=== PATIENT | female | born 1950 | race Two or more races ===

== ENCOUNTER 2016-09-27 14:47 | Inpatient (IN) | payer BC, MEDICARE ==
[2016-09-27 15:22] VITALS: BMI 17.8
[2016-09-27] MEDS ORDERED: Sodium Chloride 0.9% 1,000 ML IV STA (15:39)
[2016-09-27] MEDS ORDERED: Iohexol 240 (50 ml) ONE (15:58)
[2016-09-27 16:15] LABS: ADD MANUAL DIFF? NO
[2016-09-27 16:24] LABS: BASO # 0.05 K/mm3 (0.0-2.0); BASO % 0.7 % (0.0-3.0); EOS # 0.1 (0.0-0.7); EOS % 1.6 % (1.5-5.0); GRAN # 5.51 (1.4-6.5); GRAN % 74.5 % (50.0-68.0); LYMPH # 1.3 (1.2-3.4); LYMPH % 17.3 % (22.0-35.0); MEAN CELL VOLUME 65.7 fL (80.0-105.0); MEAN CORPUSCULAR HEMOGLOBIN 20.7 pg (25.0-35.0); MEAN CORPUSCULAR HGB CONC 31.5 g/dl (31.0-37.0); MONO # 0.4 (0.1-0.6); MONO % 5.9 % (1.0-6.0); PLATELET COUNT 487 10^3/uL (120.0-450.0); RED CELL DISTRIBUTION WIDTH 18.1 % (11.5-14.5); WHITE BLOOD COUNT 7.4 10^3/ul (4.5-11.0)
[2016-09-27 16:31] LABS: ALB/GLOB RATIO 1.1 (1.1-1.8); ALKALINE PHOSPHATASE 519 U/L (38-133); ALT/SGPT 124 U/L (7-56); AMYLASE 112 U/L (35-125); AST/SGOT 86 U/L (15-39); BILIRUBIN,TOTAL 7.4 mg/dL (0.2-1.3); BLOOD UREA NITROGEN 11 mg/dL (7-21); CALCIUM 8.9 mg/dL (8.4-10.5); CARBON DIOXIDE 24 mmol/L (21-33); CHLORIDE 98 mmol/L (98-107); GFR AFRICAN-AMERICAN > 60; GLUCOSE,RANDOM 98 mg/dL (70-110); INR 0.99 (0.93-1.08); LIPASE 337 U/L (23-300); PARTIAL THROMBOPLASTIN TIME 27.3 Seconds (23.7-30.8); POTASSIUM 3.5 mmol/L (3.6-5.0); SODIUM 134 mmol/L (132-148); TOTAL PROTEIN 7.1 g/dL (5.8-8.3)
[2016-09-27 16:38] LABS: HEMATOCRIT 23.8 % (36.0-48.0)
[2016-09-27 16:44] LABS: PH,URINE 6.5 (4.7-8.0); URINE BILIRUBIN SMALL (NEGATIVE); URINE BLOOD LARGE (NEGATIVE); URINE GLUCOSE (UA) NEGATIVE (NEGATIVE); URINE KETONE NEGATIVE (NEGATIVE); URINE LEUKOCYTE ESTERASE TRACE Leu/uL (NEGATIVE); URINE PROTEIN 30 mg/dL (<30 mg/dL); URINE UROBILINOGEN 0.2 E.U./dL (<1 E.U./dL)
[2016-09-27 16:48] LABS: URINE APPEARANCE TURBID (CLEAR); URINE COLOR YELLOW (YELLOW)
--- NOTE | 2016-09-27 16:48 | ED PDOC ---
Arrival/HPI - General Chief Complaint: Abnormal Skin Integrity Time Seen by Provider: 09/27/16 15:21 Historian: Patient - History of Present Illness Narrative History of Present Illness (Text): 09/27/16 16:45 66 y.o. female whose PMHx includes hypertension who comes to the ED with complaint of a nonspecific back pain beginning about a week ago and then developed abdominal pain over the past few days. Today her family noticed that she was jaundiced. She denies any n/v/d or fever or cp or sob. She says her stool was pale-colored about a week ago, but its color is back to normal. She says her urine is dark. No blood in stool has been noted. She has noticed easy bruising on her arms. Patient gives no history of hepatitis. She does have a history of smoking and reports significant etoh use in the past. Past Medical History - Infectious Disease Hx of Infectious Diseases: None - Tetanus Immunization Tetanus Immunization: Unknown - Cardiac Hx Hypertension: Yes - Pulmonary Hx Respiratory Disorders: No - Neurological Hx Neurological Disorder: No - HEENT Hx Cataracts: Yes Hx Glaucoma: Yes (right acute angle) - Renal Hx Renal Disorder: No - Endocrine/Metabolic Hx Endocrine Disorders: No - Hematological/Oncological Hx Blood Disorders: No - Integumentary Hx Dermatological Disorder: No - Musculoskeletal/Rheumatological Hx Musculoskeletal Disorders: No - Gastrointestinal Hx Gastrointestinal Disorders: No - Genitourinary/Gynecological Hx Genitourinary Disorders: Yes Other/Comment: benign ovarian cyst. - Psychiatric Hx Depression: No Hx Emotional Abuse: No Hx Physical Abuse: No Hx Substance Use: No - Surgical History Hx Cholecystectomy: Yes Other/Comment: rt salivary benign gland. - Anesthesia Hx Anesthesia: Yes Hx Anesthesia Reactions: No - Suicidal Assessment Feels Threatened In Home Enviroment: No Family/Social History Family/Social History: No Known Family HX Smoking Status: Current Some Days Smoker Hx Alcohol Use: Yes Frequency of alcohol use: Socially Hx Substance Use: No Hx Substance Use Treatment: Yes Allergies/Home Meds Allergies/Adverse Reactions: Allergies No Known Allergies Allergy (Verified 09/27/16 15:26) Home Medications: Home Meds Medication Instructions Recorded Confirmed Lisinopril [Zestril] 10 mg PO DAILY 09/27/16 09/27/16 Review of Systems - Review of Systems Constitutional: Other (chills). absent: Fatigue Eyes: Normal ENT: Normal Respiratory: Normal Cardiovascular: Normal Gastrointestinal: Abdominal Pain. absent: Diarrhea, Nausea, Vomiting, Hematochezia Genitourinary Female: Other (darker urine). absent: Dysuria Skin: absent: Rash Neurological: absent: Headache, Dizziness Endocrine: Normal Hemo/Lymphatic: Easy Bruising. absent: Easy Bleeding Physical Exam Vital Signs Temp Pulse Resp BP Pulse Ox 09/27/16 17:00 89 18 179/102 H 96 09/27/16 15:22 18 97 09/27/16 15:13 97.6 F 95 H 16 186/103 H 96 Temperature: Afebrile Blood Pressure: Hypertensive Pulse: Regular Respiratory Rate: Normal Appearance: Positive for: Other (Patient is visibly jaundiced; no apparent distress) Pain Distress: None Mental Status: Positive for: Alert and Oriented X 3 - Systems Exam Head: Present: Atraumatic, Normocephalic Pupils: Present: PERRL Conjunctiva: Present: Icteric Mouth: Present: Moist Mucous Membranes Pharnyx: Present: Normal. No: ERYTHEMA Neck: Present: Normal Range of Motion Respiratory/Chest: Present: Good Air Exchange, Decreased Breath Sounds. No: Respiratory Distress, Accessory Muscle Use Cardiovascular: Present: Regular Rate and Rhythm, Normal S1, S2. No: Murmurs Abdomen: Present: Tenderness (mild tenderness to the right of the umbilicus), Normal Bowel Sounds. No: Distention, Peritoneal Signs Back: Present: Normal Inspection Upper Extremity: Present: Other (several areas of superficial bruising). No: Cyanosis, Edema Lower Extremity: Present: Normal Inspection. No: Edema Neurological: Present: GCS=15, CN II-XII Intact, Speech Normal Skin: Present: Warm, Dry, Other (superficial bruising on upper extremities b/L) . No: Rashes Psychiatric: Present: Alert, Oriented x 3, Normal Insight, Normal Concentration Medical Decision Making ED Course and Treatment: 09/27/16 16:50 Patient with new onset jaundice. Will check labs, CT c/a/p. Differential: Pancreatic CA vs. Hepatocellular CA vs. Other Metastatic Disease vs. Acute Hepatitis vs. less likely cholangitis 09/27/16 19:19 Reviewed radiology, CT Chest: Dictated and Authenticated by: Margot Velasquez MD Lungs: Extensive centrilobular emphysematous changes. No focal consolidation. Pleural space: Unremarkable. No pneumothorax. No significant effusion. Heart: Ascending aorta measures up to 3.8 cm. Atherosclerotic calcification of the aorta. Coronary arterial calcifications. Moderate cardiomegaly. Mild cardiomegaly. No significant pericardial effusion. Bones/joints: Osteopenia. Spondylosis. No acute fracture. No dislocation. Soft tissues: Unremarkable. Vasculature: See above. Lymph nodes: Mediastinal lymph nodes are noted, for example 8 mm in short axis lymph node in the precarinal region. AP window lymph nodes are noted measuring up to 9 mm in short axis. Upper abdomen: Refer to the CT abdomen report for additional findings. IMPRESSION: Extensive centrilobular emphysematous changes. No focal consolidation. Refer to the CT abdomen report for additional findings CT Abdomen and Pelvis shows: Dictated and Authenticated by: Margot Velasquez MDLower thorax: <No significant pleural effusions.> ABDOMEN: Liver: Gallbladder and bile ducts: Moderate to severe intrahepatic biliary duct dilation. Common bile duct is dilated measuring up to 1.5 cm. There is soft tissue mass in the region of the gallbladder fossa and hepatic flexure of the colon with adjacent fat infiltration. Apparent thickening of the gallbladder wall. Pancreas: Unremarkable. No ductal dilation. Spleen: Unremarkable. No splenomegaly. Adrenals: Bilateral adrenal thickening. Kidneys and ureters: Moderate left hydronephrosis. Mild right hydronephrosis. Stomach and bowel: Oral contrast reaches the terminal ileum. Appendix: No findings to suggest acute appendicitis. PELVIS: Bladder: Partially contracted. Reproductive: Unremarkable as visualized. Subperitoneal space: Presacral edema. ABDOMEN and PELVIS: Intraperitoneal space: No free air. No stress drainable fluid collection. Bones/joints: Spondylosis. Soft tissues: Unremarkable. Vasculature: Atherosclerotic calcifications of the aorta. No abdominal aortic aneurysm. Lymph nodes: No enlarged lymph nodes. IMPRESSION: 1. Moderate to severe intrahepatic biliary duct dilation. Common bile duct is dilated measuring up to 1.5 cm. There is soft tissue mass in the region of the gallbladder fossa/common bile duct and hepatic flexure of the colon with adjacent fat infiltration. Apparent thickening of the gallbladder wall. These findings are concerning for either cholangiocarcinoma versus gallbladder malignancy or colonic malignancy. Clinical correlation is recommended. 2. Moderate left hydronephrosis. Mild right hydronephrosis 09/27/16 20:03 Patient's labs are noted with findings on CT showing biliary ductal dilatation associated with a concerning mass, highly suspicious for malignancy. Discussed case with patient's daughter, Kortney ([phone]), who accompanied her mother here in the ER and is a pathologist. Discussed with Dr. White, covering Dr. Jackson, who is covering Dr. La. Decision made to admit [place] [facility] [place] and if needed to be transferred for higher specialty care pending GI eval. Will transfuse patient 2 units PRBC. Patient signed blood transfusion consent. - Lab Interpretations Lab Results: 09/27/16 16:00 09/27/16 16:00 Lab Results 09/27/16 16:35: Urine Color Yellow, Urine Appearance Turbid, Urine pH 6.5, Ur Specific [place] 1.010, Urine Protein 30 H, Urine Glucose (UA) Negative, Urine Ketones Negative, Urine Blood Large H, Urine Nitrate Negative, Urine Bilirubin Small H, Urine Urobilinogen 0.2, Ur Leukocyte Esterase Trace H, Urine RBC Tntc, Urine WBC 1 - 3, Urine Bacteria Few 09/27/16 16:00: WBC 7.4, RBC 3.62, Hgb 7.5 L D, Hct 23.8 L, MCV 65.7 L, MCH 20.7 L, MCHC 31.5, RDW 18.1 H, Plt Count 487 H, MPV 9.0, Gran % 74.5 H, Lymph % (Auto) 17.3 L, [place] % (Auto) 5.9, Eos % (Auto) 1.6, Baso % (Auto) 0.7, Gran # 5.51, Lymph # 1.3, [place] # 0.4, Eos # 0.1, Baso # 0.05, PT 10.7, INR 0.99, APTT 27.3, Sodium 134, Potassium 3.5 L, Chloride 98, Carbon Dioxide 24, Anion Gap 16 , BUN 11, Creatinine 0.7, Est GFR ( Amer) > 60, Est GFR (Non-Af Amer) > 60, Random Glucose 98, Calcium 8.9, Total Bilirubin 7.4 H, Direct Bilirubin 6.1 H, GGT 309 H, AST 86 H, ALT 124 H, Alkaline Phosphatase 519 H, Total Protein 7.1 , Albumin 3.7, Globulin 3.5, Albumin/Globulin Ratio 1.1, Amylase 112, Lipase 337 H I have reviewed the lab results: Yes - RAD Interpretation Radiology Orders: 09/27/16 15:39 CHEST TWO VIEWS (PA/LAT) [RAD] Stat 09/27/16 15:40 CHEST,ABD,PEL W/IV&PO CONTRAST [CT] Stat - Medication Orders Current Medication Orders: Sodium Chloride (Sodium Chloride 0.9%) 1,000 mls @ 100 mls/hr IV .Q10H STA Stop: 09/28/16 01:38 Last Admin: 09/27/16 16:00 Dose: 100 MLS/HR eMAR Start Stop Document 09/27/16 16:00 SANDOR (Rec: 09/27/16 16:15 SANDOR [id number]) Intravenous Solution Start Date 09/27/16 Start Time 16:00 Discontinued Medications Iohexol (Omnipaque 240 (50 Ml)) Confirm Administered Dose 50 ml .ROUTE .STK-MED ONE Stop: 09/27/16 15:59 Iohexol (Omnipaque 350 100 Ml) Confirm Administered Dose 350 mg .ROUTE .STK-MED ONE Stop: 09/27/16 17:56 Disposition/Present on Arrival - Present on Arrival Any Indicators Present on Arrival: No History of DVT/PE: No History of Uncontrolled Diabetes: No Urinary Catheter: No History of Decub. Ulcer: No History Surgical Site Infection Following: None - Disposition Have Diagnosis and Disposition been Completed?: Yes Diagnosis: Jaundice, Cholangiectasis Disposition: HOSPITALIZED Disposition Time: 19:50 Patient Plan: Admission Condition: FAIR
[2016-09-27 16:49] LABS: URINE BACTERIA FEW (NEG); URINE RBC TNTC /hpf (0-2)
[2016-09-27 17:14] LABS: BILIRUBIN,DIRECT 6.1 mg/dL (0.0-0.4)
[2016-09-27] MEDS ORDERED: Iohexol 350 MG/100 ML VIAL ONE (17:55)
[2016-09-28 08:06] LABS: ADD MANUAL DIFF? NO
[2016-09-28 08:15] LABS: BASO # 0.06 K/mm3 (0.0-2.0); EOS # 0.2 (0.0-0.7); EOS % 2.9 % (1.5-5.0); GRAN # 4.25 (1.4-6.5); GRAN % 68.2 % (50.0-68.0); HEMATOCRIT 26.1 % (36.0-48.0); LYMPH # 1.3 (1.2-3.4); LYMPH % 20.2 % (22.0-35.0); MEAN CELL VOLUME 66.9 fL (80.0-105.0); MEAN CORPUSCULAR HEMOGLOBIN 21.3 pg (25.0-35.0); MEAN CORPUSCULAR HGB CONC 31.8 g/dl (31.0-37.0); MEAN PLATELET VOLUME 9.4 fl (7.0-11.0); MONO # 0.5 (0.1-0.6); MONO % 7.7 % (1.0-6.0); PLATELET COUNT 506 10^3/uL (120.0-450.0); RED CELL DISTRIBUTION WIDTH 19.2 % (11.5-14.5); WHITE BLOOD COUNT 6.2 10^3/ul (4.5-11.0)
[2016-09-28 08:23] LABS: BLOOD UREA NITROGEN 6 mg/dL (7-21); CALCIUM 8.6 mg/dL (8.4-10.5); CARBON DIOXIDE 26 mmol/L (21-33); CHLORIDE 100 mmol/L (95-110); GFR AFRICAN-AMERICAN > 60; GLUCOSE,RANDOM 96 mg/dL (70-110); POTASSIUM 3.5 mmol/L (3.6-5.0); SODIUM 136 mmol/L (132-148)
--- NOTE | 2016-09-28 08:51 | RAD ---
HISTORY: new onset jaundice COMPARISON: No prior. TECHNIQUE: Chest PA and lateral FINDINGS: LUNGS: No active pulmonary disease. PLEURA: No significant pleural effusion identified. No pneumothorax apparent. CARDIOVASCULAR: Normal. OSSEOUS STRUCTURES: No significant abnormalities. VISUALIZED UPPER ABDOMEN: Normal. OTHER FINDINGS: None. IMPRESSION: No active disease.
--- NOTE | 2016-09-28 09:54 | CT ---
PROCEDURE: CT Chest, Abdomen and Pelvis with intravenous contrast HISTORY: new onset jaundice; r/o malignancy COMPARISON: None. TECHNIQUE: IV dose administered: 100 cc of Omnipaque High density fluid in the pelvis possibly representing small hemoperitoneum post ovarian cyst rupture. Edema tracks superiorly along the left pericolic gutter. No gross bowel related abnormalities observed to suggest colitis. Helical scanning was obtained from the chest through the pelvis followed by sagittal coronal reconstructions. Radiation dose: Total exam DLP = 326 mGy-cm. FINDINGS: CT CHEST WITH CONTRAST: LUNGS: Extensive centrilobular bullous emphysema. 4 millimeter nodule in the left apical segment for which follow-up in 3-6 months is recommended to confirm stability. MEDIASTINUM: Unremarkable. Normal caliber aorta and pulmonary arterial trunk. No aortic dissection. Normal size heart. LYMPH NODES: Unremarkable. PLEURA: Unremarkable. No pneumothorax. No pleural fluid. BONES: Unremarkable. OTHER FINDINGS: None. CT ABDOMEN AND PELVIS: LIVER: Unremarkable. No gross lesion or ductal dilatation. GALLBLADDER AND BILE DUCTS: Severe intrahepatic biliary dilatation with extensive thickening and abnormal enhancement of the gallbladder wall with a roughly 4.9 x 3.8 centimeter soft tissue mass in the gallbladder fossa tracking into the subhepatic space highly suggestive of gallbladder carcinoma. Acute cholecystitis with severe phlegmon is also considered. PANCREAS: Unremarkable. No gross lesion or ductal dilatation. SPLEEN: Unremarkable. ADRENALS: Unremarkable. No mass. KIDNEYS AND URETERS: Unremarkable. No hydronephrosis. No solid mass. VASCULATURE: Unremarkable. No aortic aneurysm. BOWEL: Unremarkable. No obstruction. No gross mural thickening. APPENDIX: Normal appendix. PERITONEUM: Unremarkable. No free fluid. No free air. LYMPH NODES: Unremarkable. No enlarged lymph nodes. BLADDER: Unremarkable. REPRODUCTIVE: Unremarkable. BONES: No acute fracture. OTHER FINDINGS: None. IMPRESSION: Severe intrahepatic biliary dilatation with extensive thickening and abnormal enhancement of the gallbladder wall with a roughly 4.9 x 3.8 centimeter soft tissue mass in the gallbladder fossa tracking into the subhepatic space highly suggestive of gallbladder carcinoma. Acute cholecystitis with severe phlegmon is also considered. Extensive centrilobular bullous emphysema. 4 millimeter nodule in the left apical segment for which follow-up in 3-6 months is recommended to confirm stability.
[2016-09-28 12:45] LABS: CA 19-9 4620 U/mL (0-37)
--- NOTE | 2016-09-28 22:24 | CON ---
DATE: 09/28/2016 REASON FOR CONSULTATION: Abdominal CAT scan, jaundice. HISTORY OF PRESENT ILLNESS: This 66-year-old patient with a past medical history of hypertension presented to the Emergency Room with complaints of worsening of the abdominal pain for the past 1 week and also worsening of back pain. She also noticed the stool was more pale in color. Denies any vomiting any blood. No fever, no diarrhea. No similar history of pain in the past. PAST MEDICAL HISTORY: Her other past medical history is significant for total abdominal hysterectomy with salpingo-oophorectomy for ovarian cyst adenoma many years ago, history of left mandibular salivary gland surgery, cataract and surgery for acute angle glaucoma. ALLERGIES: No known drug allergy. SOCIAL HISTORY: Positive for smoking, alcohol socially. REVIEW OF SYSTEMS: Positive as above. Other systems reviewed. All other systems reviewed and negative. PHYSICAL EXAMINATION: GENERAL: The patient is lying on the bed, not in acute distress. VITAL SIGNS: Pulse 76 per minute, blood pressure 145/83, temperature is 98.3, respirations 16. HEENT: Jaundiced. NECK: Supple. HEART: S1, S2 heard. LUNGS: Bilateral air entry present. ABDOMEN: Soft. There was no tenderness. There was no mass palpable. There was tenderness present in the right side of the abdomen. On deep palpation, had a fullness present. Liver edge palpable. EXTREMITIES: No edema. No cyanosis. NEUROLOGIC: Alert, oriented. Moves all the extremities. LABORATORY DATA: Hemoglobin yesterday was 7.5, she was transfused a unit, today is 8.5. Platelets 506. WBC 6.2. Chemistry is total bilirubin 7.4. GGTP 6309. AST is 86, ALT 124, alkaline phosphatase 519. The patient's lipase is 337, CA 19-9 is significantly elevated to 4620. CA-125 is 16.9. CEA is only 2.7. The patient did have a CT of the abdomen and pelvis with p.o. and IV contrast given and it was reported as [id number] intrahepatic bile duct dilation and common bile duct was measuring up to 1.5 cm. There was a soft tissue mass in the region of the gallbladder fossa. Common bile duct and the hepatic flexure of the colon with adjacent fat infiltration. The findings are more in concern of cholangiocarcinoma versus gallbladder malignancy versus colonic malignancy. The patient also found to have moderate left hydronephrosis and right hydronephrosis. _. IMPRESSION: This 66-year-old patient admitted with worsening of the abdominal pain and back pain. Found to be anemic with a hemoglobin of 7.5. She is status post unit transfusion given. No history of melena or bright red blood per rectum. The CT shows significant finding of soft tissue mass in the region of the gallbladder fossa, CBD and the hepatic flexure area. The patient did have significant elevated CA 19-9, normal CEA. The findings are more suggestive of gallbladder carcinoma versus cholangiocarcinoma. The patient never had an EGD or a colonoscopy done. PLAN: 1. Discussed with the patient's daughter who is a physician working as hepatopathologist in [facility]. She would prefer the patient to be referred to tertiary hepatobiliary unit for advanced procedures and surgical evaluation if needed 2. I did explain to her that the reasonable thing is to get a little more information about patient's condition. She would benefit from an MRI of the abdomen with and without contrast with MRCP to further evaluate. She is agreeable for that and it was ordered. 2. We will continue Protonix and close followup of the hemoglobin and hematocrit. 3. The patient's family prefers the patient to be transferred to a tertiary liver unit, which we will be contacting in a.m. Thank you very much for allowing us to participate in the care of the patient. The patient's daughter is Dr. Kortney Pederson. Her cellphone [phone]. She prefers to have complete involvement in the patient's care. Franklin Guerrero MD cc: [id number] TT: 09/28/2016 22:23:18 Confirmation # [id number] Dictation # [id number] [facility]ISON
--- NOTE | 2016-09-29 01:49 | HP ---
HISTORY OF PRESENT ILLNESS: The patient is a 66-year-old female, presented to the ED with complaints of nonspecific back pain, abdominal pain. No nausea and vomiting. She noticed that was jaundiced. She never had fever. She also noted black-colored stools. Urine was dark. She also noted easy bru ising on the arms. There is no history of hepatitis in the past. CAT scan of the chest, abdomen, an d pelvis showed a mass in shailesh hepatis. No other lesions identified in the chest or abdomen. She h as history of cholecystectomy. She has been in good health a month ago. She also noticed decreased appetite and some weight loss. PAST MEDICAL HISTORY: Hypertension, benign ovarian cyst. PAST SURGICAL HISTORY: Cholecystectomy, right salivary gland benign tumor. FAMILY HISTORY: No positive history in mother and father. PERSONAL HISTORY: Current someday smoker. No history of alcohol abuse. SOCIAL HISTORY: Lives at home. ALLERGIES: No known drug allergies. HOME MEDICATIONS: Lisinopril 10 mg daily. REVIEW OF SYSTEMS: As per HPI. Rest of 12-point review of systems reviewed and negative. PHYSICAL EXAMINATION: GENERAL: Comfortable in bed, in no acute distress. VITAL SIGNS: Temperature 98.7, heart rate is 95 per minute, respiratory rate 16 per minute, blood pr essure 186/103, pulse rate is 96 per minute. HEENT: icterus present. Oral mucosa pale. NECK: No lymphadenopathy. Pupils equally reacting to light, bilateral. No lymphadenopathy. CHEST: Air entry present, equal bilateral. No added sound. CARDIOVASCULAR: S1, S2 normal. No murmur, no gallop. ABDOMEN: Soft, nontender, no hepatosplenomegaly. No ascites. No rebound tenderness. NEUROLOGIC: Alert, oriented x 3, no focal sensorimotor deficit. SKIN: No petechia, no rash or jaundice present. Spine normal. PSYCHIATRIC: Mood and affect normal. LABORATORY DATA: White count 7.4, hemoglobin 7.5, hematocrit 23.8, MCV 65, platelet count 487. PT 1 0.7, INR 0.99, ____ 27.3. Sodium 135, potassium 3.5, creatinine 0.7, total bilirubin 7.4, direct lenin irubin 6.1, GGT 309, AST 86, ALT 124, alkaline phosphatase 519, lipase 337. UA: Leukocyte esterase trace. ASSESSMENT: 1. Marked shailesh hepatis. 2. Jaundice. 3. Severe anemia. 4. Abdominal pain. 5. Hypertension. PLAN: She will be admitted to the hospital. We will give IV fluids, 800 mL an hour normal saline. We will give Pepcid 20 mg IV b.i.d. We will continue antihypertensives, lisinopril 10 mg daily. GI consultation with Dr. Guerrero requested. CAT scan of abdomen and pelvis reviewed. Severe anemia, he moglobin 7.5 two units of blood transfusion ordered. We will continue to monitor hemoglobin and baudilio tocrit. She will need further workup for evaluation of malignancy. Very likely, she might have chol angiocarcinoma or metastatic lesion from pancreatic cancer. Tumor markers were ordered CEA, CA 19.9 and CA-125. Results reviewed. CEA normal, CA-125 normal, CA 19.9 elevated at 4000. Consistent with cholangiocarcinoma or pancreatic cancer. She will need biopsy of the shailesh hepatitis mass. Also will need biliary drainage. She has obstructive jaundice. Hepatitis serology is ordered. Both patient and daughter want to be transferred to [facility] for further workup and evaluation and treatm ent. Daughter is pathologist in [facility]. Dr. Guerrero will contact the GI oncology team at [facility]. I had a lengthy discussion with the daughter, answered all her questio ns to her satisfaction. Discussed with Dr. Guerrero at length, she will benefit from MRI of the live r. MRI ordered. I discussed with the staff nurse. Discussed with Dr. Guerrero. Discussed with the daughter, Feliciawesley, discussed with the patient. Candy White MD cc: [id number] TT: 09/29/2016 01:48:09 shelbi
[2016-09-29 07:24] LABS: HEMATOCRIT 26.2 % (36.0-48.0); MEAN CELL VOLUME 67.2 fL (80.0-105.0); MEAN CORPUSCULAR HEMOGLOBIN 21.5 pg (25.0-35.0); MEAN CORPUSCULAR HGB CONC 32.1 g/dl (31.0-37.0); MEAN PLATELET VOLUME 9.1 fl (7.0-11.0); RED CELL DISTRIBUTION WIDTH 19.8 % (11.5-14.5); WHITE BLOOD COUNT 7.3 10^3/ul (4.5-11.0)
[2016-09-29] MEDS ORDERED: Piperacillin/Tazobact 3.375 gm 100 ML IVPB SCH (08:00)
[2016-09-29 08:03] LABS: ALKALINE PHOSPHATASE 510 U/L (38-133); ALT/SGPT 102 U/L (7-56); AST/SGOT 86 U/L (15-39); BILIRUBIN,TOTAL 9.3 mg/dL (0.2-1.3); BLOOD UREA NITROGEN 11 mg/dL (7-21); CALCIUM 8.9 mg/dL (8.4-10.5); CARBON DIOXIDE 30 mmol/L (21-33); CHLORIDE 100 mmol/L (98-107); GFR AFRICAN-AMERICAN > 60; GLUCOSE,RANDOM 93 mg/dL (70-110); POTASSIUM 4.3 mmol/L (3.6-5.0); SODIUM 140 mmol/L (132-148); TOTAL PROTEIN 6.8 g/dL (5.8-8.3)
--- NOTE | 2016-09-29 08:06 | PN ---
DATE: 09/29/2016 SUBJECTIVE: The patient has no complaints of any chest pain, no shortness of breath. PHYSICAL EXAMINATION: VITAL SIGNS: Temperature is 98.3, pulse is 76, blood pressure is 131/69, respirations 16. GENERAL: The patient comfortable, in no acute distress. HEENT: Anicteric sclerae. Moist mucosa. NECK: No JVD or adenopathy. CARDIAC: S1/S2. No murmurs. No rubs. Regular. RESPIRATORY: Clear to auscultation bilaterally. No wheezes, rales, or rhonchi. Good air entry. ABDOMEN: Bowel sounds are positive, soft, nontender, and nondistended. EXTREMITIES: No edema. Has 1+ pulses. LABS: White count is 6.3, hemoglobin 8.3, creatinine 0.8. ASSESSMENT: 1. Jaundice. 2. Hypertension. 3. Abdominal pain. 4. Anemia. 5. A 4.9 x 3.8 cm soft tissue mass in the gallbladder fossa. 6. Acute cholecystitis. 7. A 4 mm nodule in the left lung. PLAN: The patient has significant elevated LFTs as well as an alk phos. The patient's bilirubin is elevated. On CAT scan, the patient has severe intrahepatic biliary dilatation with extensive thicke ailyn and abnormal enhancement of the gallbladder wall. There is a 4.9 x 3.8 cm soft tissue mass in t he gallbladder fossa. The patient is currently comfortable. She is IV fluids. She is going to cont in on lisinopril for hypertension. An MRCP has been ordered. The patient is being followed by Dr. Guerrero. The patient's daughter who is a physician is asking for transfer to a tertiary care center according to Dr. Guerrero. Her name is Dr. Kortney Pederson. Her cell number is [phone]. Hepat itis profile has been ordered. Juan Jackson MD cc: [id number] TT: 09/29/2016 08:06:42 Confirmation # [id number] Dictation # [id number] mn
[2016-09-29] MEDS ORDERED: Gadodiamide 287 MG/ML VIAL (15ML) IV ONE (10:09)
--- NOTE | 2016-09-29 13:09 | MRI ---
PROCEDURE: Magnetic Resonance Cholangiopancreatography with MRI of the abdomen with and without contrast HISTORY: Follow-up CT scan COMPARISON: CT 09/27/2016. TECHNIQUE: Multiplanar, multisequence MR images of the abdomen were obtained, including heavily T2 weighted MRCP images of the biliary system. Rotating maximum intensity projection images of the biliary system were generated. 15 cc of Omniscan FINDINGS: MRCP: There is severe intrahepatic ductal dilatation. There are no metastatic lesions seen in the liver LIVER: Unremarkable. GALLBLADDER: There is a large mass surrounding the gallbladder suspicious for a gallbladder neoplasm. The mass measures 7 cm wide by 4.4 cm AP by 6.2 cm in height. The mass invades or obstructs the common bile duct proximally. The distal common duct is normal in size. The pancreatic duct is normal in size. SPLEEN: Unremarkable. PANCREAS: Unremarkable. ADRENALS: Unremarkable. KIDNEYS: Moderate left-sided hydronephrosis and hydroureter AORTA: No aneurysm. ASCITES: None. OTHER FINDINGS: None. IMPRESSION: Large mass in the gallbladder fossa consistent with gallbladder neoplasm. The mass invades or obstructs the common duct proximally and there is severe intrahepatic ductal dilatation Left-sided hydronephrosis and hydroureter
--- NOTE | 2016-09-29 15:54 | CP.PCM.PN ---
Subjective - Date & Time of Evaluation Date of Evaluation: 09/29/16 Time of Evaluation: 14:00 - Subjective Subjective: Seen and examined at bedside. Went for MRCP today, report findings reviewed. No N/V, or abdominal pain. Appears jaundice. No SOB or chest pain. Objective - Vital Signs/Intake and Output Vital Signs (last 24 hours): Temp Pulse Resp BP Pulse Ox 98.7 F 76 20 125/76 96 09/29/16 08:00 09/29/16 13:11 09/29/16 08:00 09/29/16 13:11 09/29/16 08:00 Intake and Output: 09/29/16 09/29/16 06:59 18:59 Intake Total 540 Balance 540 - Medications Medications: Current Medications Famotidine (Pepcid) 20 mg IVP BID [facility] Last Admin: 09/29/16 10:08 Dose: Not Given Lisinopril (Zestril) 10 mg PO DAILY [facility] Last Admin: 09/29/16 13:11 Dose: 10 mg - Labs Labs: 09/29/16 07:00 09/29/16 07:00 PT 10.7 Seconds (9.9-11.8) 09/27/16 16:00 INR 0.99 (0.93-1.08) 09/27/16 16:00 APTT 27.3 Seconds (23.7-30.8) 09/27/16 16:00 - Constitutional Appears: No Acute Distress - Head Exam Head Exam: NORMOCEPHALIC - Eye Exam Eye Exam: Scleral icterus - ENT Exam ENT Exam: Mucous Membranes Moist - Neck Exam Neck Exam: Normal Inspection - Respiratory Exam Respiratory Exam: NORMAL BREATHING PATTERN. absent: Respiratory Distress - Cardiovascular Exam Cardiovascular Exam: +S1, +S2 - GI/Abdominal Exam GI & Abdominal Exam: Soft, Normal Bowel Sounds. absent: Guarding, Tenderness, Rebound Additional comments: palpable liver - Extremities Exam Extremities Exam: absent: Calf Tenderness, Pedal Edema - Neurological Exam Neurological Exam: Alert, Awake, Oriented x3 - Skin Skin Exam: Dry, Warm Assessment and Plan - Assessment and Plan (Free Text) Assessment: ASSESSMENT: Anemia Abnormal ct scan/MRI: Gallbladder Fossa Mass invading common duct Intrahepatic ductal dilation Jaundice Lung Nodule H/O Ovarian cyst adenoma PLAN: Monitor LFT continue diet as tolerated continue Pepcid BID Patient is for transfer to [facility], spoke to Dr. Moore, Hepatobilliary Surgeon who will accept patient under his service . Patient will be sent with copies of radiology test report and CD. Spoke to patient and daughter Dr. Kortney Pederson at the bedside. All questions answered. As per Dr. Kortney Pederson, she spoke to Dr. Moore. Seen and discussed with Dr. Guerrero.
[2016-09-29 16:20] VITALS: BP 119/68; PULSE 73; RESP 18; TEMP 98; O2SAT 95
== END 2016-09-29 21:36 | disposition short-term general hospital (02) | DRG 442 ==
LOC: ED 14:47 → ERH 20:09 → 5RSO 20:54
PROVIDERS: ADMIT Internal Medicine Nephrology; ATTEND Internal Medicine Nephrology
PROC: 30233N1 Transfusion of Nonautologous Red Blood Cells into Peripheral Vein, Percutaneous Approach (ICD-10-PCS; principal; 2016-09-27)
DX: R17 Unspecified jaundice (principal); K81.0 Acute cholecystitis; I10 Essential (primary) hypertension; N13.30 Unspecified hydronephrosis; D64.9 Anemia, unspecified; N83.209 Unspecified ovarian cyst, unspecified side; R91.1 Solitary pulmonary nodule; R79.89 Other specified abnormal findings of blood chemistry; M54.9 Dorsalgia, unspecified; R63.0 Anorexia; R63.4 Abnormal weight loss